=== PATIENT | female | born 1970 | race Two or more races ===

== ENCOUNTER 2023-09-02 02:08 | Emergency (ER) | payer OTHER ==
[~2023-09-02] VITALS: Ht 149.9 cm; Wt 43.5 kg
[2023-09-02] MEDS ORDERED: ENOXAPARIN SODIUM 40 MG/0.4 ML SYRINGE SUBCUTANEO STA (04:30)
[2023-09-02 04:58] LABS: HEMOGLOBIN 14.9 g/dL (12.0-15.00); MEAN CELL VOLUME 85.8 fL (80.00-100.00); MEAN CORPUSCULAR HEMOGLOBIN 28.4 pg (27.00-32.0); MEAN CORPUSCULAR HGB CONC 33.2 g/dl (32.0-36.0); PLATELET COUNT 242 K/uL (150-450); RED BLOOD COUNT 5.25 M/uL (4.00-6.00)
[2023-09-02 05:48] LABS: INR 1.01; PARTIAL THROMBOPLASTIN TIME 26.7 SECONDS (22.0-34.0); PROTHROMBIN TIME 10.6 SECONDS (9.0-11.5)
[2023-09-02 05:55] LABS: ALBUMIN 3.4 gm/dL (3.4-5.0); BILIRUBIN TOTAL 0.27 mg/dL (0.3-1.2); CALCIUM 8.6 mg/dL (8.5-10.1); CREATININE SERUM 0.77 mg/dL (0.55-1.02); GFR 79.03; GLOBULINA 3.1 G/DL (2.4-3.5); POTASSIUM 3.76 mEq/L (3.5-5.1); TOTAL PROTEIN 6.5 gm/dL (6.4-8.2)
== END 2023-09-02 11:19 | disposition home or self-care (01) ==
LOC: EDBD 02:08 → ER 02:08
PROVIDERS: General Practice
DX: M79.661 Pain in right lower leg (principal)